=== PATIENT | male | born 1960 | race Caucasian/White ===

== ENCOUNTER 2023-03-31 06:15 | Day surgery (SDC) | payer OTHER ==
[2023-03-17 17:46] VITALS: BMI 37.5
[2023-03-31] MEDS ORDERED: EPINEPHrine 1:1,000 1,000 MCG/ML ML ONE (07:09)
[2023-03-31] MEDS ORDERED: BUPIVACAINE HCL/PF 2.5 MG/ML - 30 ML VIAL IJ ONE (07:10)
[2023-03-31] MEDS ORDERED: BUPIVACAINE HCL/PF 0.5% (5 MG/ML) 30 ML VIAL IJ ONE (07:22)
[2023-03-31] MEDS ORDERED: MIDAZOLAM HCL 2 MG/2 ML SINGLE DOSE VIAL ONE ×3 (07:22→09:30)
[2023-03-31] MEDS ORDERED: DEXAMETHASONE SOD PHOSPHATE/PF 10 MG/ML SDV ONE (07:23)
[2023-03-31] MEDS ORDERED: ACETAMINOPHEN INJECTION 100 ML IVPB ONE (07:23)
[2023-03-31] MEDS ORDERED: ceFAZolin SODIUM 1 GM VIAL ONE (07:51)
[2023-03-31] MEDS ORDERED: PROPOFOL 20 ML ONE ×3 (07:57→09:08)
[2023-03-31] MEDS ORDERED: TRANEXAMIC ACID 1000 MG/10 ML VIAL ONE (08:22)
[2023-03-31] MEDS ORDERED: ACETAMINOPHEN 325 MG TABLET (FP) PO PRN (09:56)
[2023-03-31] MEDS ORDERED: ONDANSETRON 4 MG/2 ML VIAL IVPUSH PRN (09:56)
[2023-03-31] MEDS ORDERED: oxyCODONE HCL 5 MG TABLET PO PRN ×2 (09:56)
[2023-03-31] MEDS ORDERED: LACTATED RINGERS SOLUTION 1,000 ML IV SCH (10:00)
[2023-03-31 11:40] VITALS: RESP 19; TEMP 97.9
[2023-03-31 11:44] VITALS: BP 128/76; PULSE 77
== END 2023-03-31 11:25 | disposition home or self-care (01) ==
LOC: FASU 06:15
PROVIDERS: ATTEND Orthopaedic Surgery
PROC: 0RBK4ZZ Excision of Left Shoulder Joint, Percutaneous Endoscopic Approach (ICD-10-PCS; 2023-03-31)
PROC: 0RNK4ZZ Release Left Shoulder Joint, Percutaneous Endoscopic Approach (ICD-10-PCS; principal; 2023-03-31 08:16)
PROC: 0LM24ZZ Reattachment of Left Shoulder Tendon, Percutaneous Endoscopic Approach (ICD-10-PCS; 2023-03-31 08:16)
DX: M75.122 Complete rotator cuff tear or rupture of left shoulder, not specified as traumatic (principal); M75.52 Bursitis of left shoulder; M65.812 Other synovitis and tenosynovitis, left shoulder
CPT/HCPCS: 94760; C1713